=== PATIENT | female | born 1960 | race Caucasian/White ===

== ENCOUNTER → 2022-10-25 | Outpatient (CLI) | payer BC, OTHER | LOC: MHCPAIN 07:56 | DX: M47.812 Spondylosis without myelopathy or radiculopathy, cervical region (principal); M54.12 Radiculopathy, cervical region | CPT/HCPCS: G0463 ==

== ENCOUNTER → 2022-10-28 | Outpatient (CLI) | payer BC, OTHER | LOC: MHCPAIN 11:29 | DX: M47.812 Spondylosis without myelopathy or radiculopathy, cervical region (principal); M54.12 Radiculopathy, cervical region | CPT/HCPCS: J1100; Q9967 ==

== ENCOUNTER → 2022-11-24 | Outpatient (CLI) | payer BC, OTHER | LOC: MHCPAIN 08:02 | DX: M54.12 Radiculopathy, cervical region (principal); M47.812 Spondylosis without myelopathy or radiculopathy, cervical region; M79.2 Neuralgia and neuritis, unspecified | CPT/HCPCS: G0463 ==

== ENCOUNTER → 2023-09-07 | Outpatient (CLI) | payer BC, OTHER | LOC: COL.RAD 06:44 | DX: Z09 Encounter for follow-up examination after completed treatment for conditions other than malignant neoplasm (principal); M43.22 Fusion of spine, cervical region; M47.812 Spondylosis without myelopathy or radiculopathy, cervical region ==